=== PATIENT | male | born 1960 | race Caucasian/White ===

== ENCOUNTER → 2023-10-21 08:23 | Outpatient (REF) | payer OTHER, SELFPAY | LOC: DHCBS MAIN 08:23 | PROVIDERS: ATTENDING PHYSICIAN Nuclear Medicine Nuclear Cardiology; FAMILY PHYSICIAN Internal Medicine | DX: I25.5 Ischemic cardiomyopathy (principal); I48.3 Typical atrial flutter; R94.31 Abnormal electrocardiogram [ECG] [EKG] | CPT/HCPCS: 93306 ==

== ENCOUNTER 2024-07-08 18:59 | Emergency (ER) | payer OTHER, SELFPAY ==
[2024-07-08 18:59] VITALS: BMI 22.8
[2024-07-08 19:03] VITALS: BP 130/82
--- NOTE | 2024-07-08 19:03 | EDRN ---
called name from triage, no answer.
[2024-07-08 19:32] LABS: % Basophils 0.4 % (0-2); % Eosinophils 1.1 % (0-6); % Immature Granulocytes 0.1 % (0-0.5); % Lymphocytes 24.3 % (20.5-51.1); % Monocytes 7.4 % (1.7-9.3); % Neutrophils 66.7 % (42.2-75.2); Absolute Eosinophils 0.1 10^3/uL (0-0.7); Absolute Lymphocytes 1.8 10^3/uL (1.2-3.4); Absolute Monocytes 0.6 10^3/uL (0.1-0.6); Hematocrit 43.4 % (39.0-52.0); Hemoglobin 15.6 g/dL (13.0-18.0); Mean Corp Hgb Conc. 35.9 g/dL (33.0-37.0); Mean Corpuscular Volume 88.9 fL (80.0-94.0); Mean Platelet Volume 8.8 fL (7.4-10.4); Nucleated Red Blood Cells % 0 % (-); Platelet Count 245 10^3/uL (130-400); Red Blood Cell Count 4.88 10^6/uL (4.70-6.10); Red Cell Dist. Width 12.2 % (11.5-14.5); White Blood Cell Count 7.5 10^3/uL (4.8-10.8)
[2024-07-08 19:43] LABS: ALT (SGPT) 60 U/L (0-50); AST (SGOT) 50 U/L (17-59); Albumin 4.5 g/dl (3.5-5.0); Alkaline Phosphatase 80 U/L (38-126); Blood Urea Nitrogen 20 mg/dl (9-20); Calcium 9.4 mg/dl (8.4-10.2); Carbon Dioxide 27 mmol/L (22-30); Chloride 101 mmol/L (98-107); Glucose 128 mg/dl (70-99); Lipase 166 U/L (23-300); Sodium 138 mmol/L (135-145); Total Bilirubin 4.1 mg/dl (0.2-1.3); Total Protein 6.7 g/dl (6.3-8.2); eGFR > 60.00
[2024-07-08 21:57] VITALS: BP 132/78
[2024-07-08 22:00] VITALS: BP 128/80
[2024-07-08] MEDS: MOTRIN 600 MG PO (22:00)
--- NOTE | 2024-07-08 22:09 | ED.GENMED ---
History of Present Illness
General
Chief Complaint: Abdominal Symptoms
Source: patient
Exam Limitations: none
Time Seen by Provider: 07/08/24 21:19
History of Present Illness
History of Present Illness:
This is a 64 year old male that comes in with c/o headache. States that last week his daughter was sick. States that he got sick on Saturday and had cold like symptoms over the weekend. States that he felt better on Saturday so he went out and racked
leaves a couple of hour. Then in the afternoon he started to feel nauseated and had a headache. States that he rested before dinner, eat dinner and then after dinner the nausea was worse and he vomited. States that on Saturday he was still nauseated
and had a headache. States that he was able to eat and keep something down. Today the nausea was gone and he eat but he still has the headache. States that he has left sided headache pain and pain behind the left eye. Denies any fever, chills, chest
pain, SOB, abd pain, diarrhea, dizziness, urinary burning.
Past History
Past History
ED Past Medical History: CAD, GERD and MD
ED Past Surgical History: Cardiac (CABG) and Other (Right hernia repair, Lipoma removed)
Social History
Tobacco: Non-smoker
Alcohol: Occasional
Personal:
Living: with family
Review of Systems
Review of Systems
All Other Systems: ROS reviewed and negative except as documented in HPI and ROS
Constitutional: Reports no symptoms; Denies fever or chills
EENT: Reports no symptoms
Respiratory: Reports no symptoms; Denies cough or trouble breathing
Cardiac: Reports no symptoms; Denies chest pain
ABD/GI: Reports nausea and vomiting; Denies abdominal pain or diarrhea
: Reports no symptoms; Denies dysuria, frequency or urgency
Musculoskeletal: Reports no symptoms
Skin: Reports no symptoms
Neurological: Reports headache; Denies dizzy
Psychiatric: Reports no symptoms
Phy Exam
General Physical Exam
General Presentation: well appearing and no apparent distress
General age: appears stated age
General Skin: warm and dry
General Habitus: normal
General Mental: alert
General Hydration: appears well hydrated
ENT Exam
ENT Exam: TM's normal, pharynx normal and neck supple
Eye Exam
Eye Exam: EOMI
Cardiovascular Exam
Cardiovascular Exam: regular rate/rhythm, no edema, no murmur and normal peripheral pulses
Pulmonary Exam
Pulmonary Exam: lungs clear, no respiratory distress, no rales, chest non tender, no crackles, no rhonchi, no wheezing and no cough
Gastrointestinal Exam
Gastrointestinal Exam: normal bowel sounds, non tender, soft, no organomegaly, no pulsatile mass and non distended
Musculoskeletal Exam
Musculoskeletal Exam: full ROM and no edema
Skin Exam
Skin Exam: normal color, warm/dry, no rash and no petechia
Psychiatric Exam
Psychiatric Exam: normal mood/affect
Course
Orders/Labs/Results
Orders:
Orders
07/08/24 19:06
Electrocardiogram (*1) Urgent
Reason for Study: Abdominal Pain
EKG- Treatment ONCE
IV Insert/Care/Rem.- Treatment PRN
07/08/24 19:20
Complete Blood Count/With Diff Urgent
Comprehensive Metabolic Panel Urgent
Lipase Urgent
07/08/24 21:45
CT Head W/o Iv Contrast Urgent
Comment:
Reason For Exam: HEADACHE LEFT SIDED
07/08/24 21:46
Ibuprofen [Motrin] 600 mg PO NOW STA
07/08/24 22:07
COVID-19 Antigen Urgent
Source: Nasal Swab
Abnormal Lab Results
07/08/24
19:20
MCH 32.0 H pg
(27.0-31.0)
Glucose 128 H mg/dl
(70-99)
Total Bilirubin 4.1 H mg/dl
(0.2-1.3)
ALT 60 H U/L
(0-50)
07/08/24 19:20
07/08/24 19:20
Hyperglycemia, Total carmine elevation ( decreased from prior labs), ALT mildly elevated. Lipase normal at 166, COVID negative.
Vital Signs
Initial and Last Documented VS:
Initial Vital Signs
Temp Pulse Resp BP Pulse Ox
98.0 F 66 19 130/82 99
07/08/24 19:03 07/08/24 19:03 07/08/24 19:03 07/08/24 19:03 07/08/24 19:03
Last Documented Vital Signs
Temp Pulse Resp BP Pulse Ox
98.0 F 66 19 128/80 100
07/08/24 19:03 07/08/24 19:03 07/08/24 19:03 07/08/24 22:00 07/08/24 22:00
MDM/Problems Addressed
Differential Diagnosis Includes:
COVID, Headache, Viral syndrome
MDM/Problems Addressed:
This is a 64 year old male that comes in with c/o headache. States that he had a cold like symptoms over the weekend. ON Saturday he started with nausea and a headache. This continued into Saturday and he still has the headache today.
Will check labs. COVID and get CT head.
Back into see patient. Explained that his Blood work shows his Total carmine is elevated but this has improved from prior labs. COVID is negative and the CT of the head is normal. Patient states that he is feeling better after the Ibuprofen. Encouraged
patient to increase his water intake to 8-8oz glasses daily. Follow up with the family doctor for recheck. Return with any concerns.
Chronic conditions affecting care: CAD
Acute Exacerbation and/or Progression of Chronic Illness: CAD
*Radiology
Radiology exam reviewed: radiology read reviewed (CT head-NO acute intracranial abnormality noted. )
*Pulse Oximetry
Patient hypoxic: no
*EKG
Interpreted by ED Provider?: Yes
Heart Rate: 65
Rate: normal
Rhythm: sinus
[place]: normal axis
Interval: normal interval
QRS Pattern: normal QRS
Ischemia: no ischemia
*Special Effects Technician Interpretation
Rate: Special Effects Technician- N/A
*Critical Care Note
Total Time (30-74mins, 75-104mins- exclusive of procedures): Not Applicable
ED Attending Note
-
Portions of this chart may have been created with voice recognition software.� Occasional wrong word or��sound alike� substitutions may have occurred due to the inherent limitations of voice recognition software.
Discharge Plan
Departure
Patient Disposition: Home (Routine Discharge)
Date of Disposition: 07/08/24
Time of Disposition: 23:11
Patient with high blood pressure during this ER visit?: No
Condition: Good
Covid-19: Negative COVID-19
Discharge Problem:
Headache
Instructions: Headache, Adult ED
Prescriptions:
No Action
ascorbic acid (vitamin C) [Vitamin C] 1,000 mg Tablet
1,000 mg PO DAILY
carvedilol 3.125 mg Tablet
3.125 mg PO BID
latanoprost 0.005 % Drops
1 drp BOTH EYES QPM
atorvastatin [Lipitor] 80 mg tablet
80 mg PO HS
aspirin 81 mg tablet,delayed release (DR/EC)
81 mg PO DAILY
Farxiga 10 mg Tablet
10 mg PO DAILY Qty: 30 2RF
cholecalciferol (vitamin D3) [Vitamin D3] 25 mcg (1,000 unit) Tablet
50 mcg PO DAILY
oxycodone 5 mg tablet
5 - 10 mg PO Q4HPRN PRN (Reason: moderate to severe pain) Qty: 20 0RF
Referrals:
Sherman Hinkle MD [Family Provider] - Follow up in 2-3 days
Activity Restrictions/Additional Instructions:
As discussed, your CT of the head is normal. Please increase your water intake to 8-8oz glasses daily. This was most likely a viral illness. Please use Tylenol or Ibuprofen for headache pain. Follow up with the family doctor for recheck. IF YOU
HAVE ANY OTHER CONCERNS PLEASE RETURN TO THE EMERGENCY ROOM
Interventions
Interventions:
*Risk Screen - Suicide Last Done: 07/08/24 19:03
*General Assessment Last Done: 07/08/24 21:58
*Neglect/Abuse Screening Last Done: 07/08/24 19:03
*ED COVID-19 Vaccine History Last Done: 07/08/24 21:58
Discharge Date and Time
Print Language: ESTONIAN
[2024-07-08 22:23] LABS: COVID-19 Antigen Negative (Negative)
[2024-07-08 23:00] VITALS: BP 134/80
== END 2024-07-08 23:24 | disposition home or self-care (01) ==
LOC: EMR 18:59
PROVIDERS: Clinical Nurse Specialist Family Health; Emergency Medicine; EMERGENCY PHYSICIAN Emergency Medicine; FAMILY PHYSICIAN Internal Medicine
DX: R51.9 Headache, unspecified (principal); I25.10 Atherosclerotic heart disease of native coronary artery without angina pectoris; K21.9 Gastro-esophageal reflux disease without esophagitis; I25.2 Old myocardial infarction; Z95.1 Presence of aortocoronary bypass graft
CPT/HCPCS: 99284; 70450; 80053; 83690; 85025; 87811; 93005

== ENCOUNTER → 2024-09-28 09:12 | Outpatient (REF) | payer OTHER, SELFPAY | LOC: HWRCS 09:12 | PROVIDERS: ATTENDING PHYSICIAN Nuclear Medicine Nuclear Cardiology; FAMILY PHYSICIAN Internal Medicine | DX: I25.10 Atherosclerotic heart disease of native coronary artery without angina pectoris (principal); Z95.1 Presence of aortocoronary bypass graft; I25.5 Ischemic cardiomyopathy; E78.5 Hyperlipidemia, unspecified | CPT/HCPCS: 93306 ==